=== PATIENT | female | born 1985 | race American Indian/Alaskan Native ===

== ENCOUNTER 2017-02-19 10:12 | Inpatient (IN) | payer MEDICAID ==
[2017-02-19] MEDS ORDERED: BRETHINE IVP PRN (10:23)
[2017-02-19] MEDS ORDERED: BRETHINE SUB-Q PRN (10:23)
[2017-02-19] MEDS ORDERED: MINERAL OIL PO PRN (10:23)
[2017-02-19] MEDS ORDERED: ePHEDrine SULFATE IV PRN ×2 (10:23→13:24)
[2017-02-19] MEDS ORDERED: SUBLIMAZE IV PRN (10:23)
[2017-02-19] MEDS ORDERED: XYLOCAINE 2% INFILTRATI ONE (10:23)
[2017-02-19 10:59] LABS: Hematocrit 34.8 % (30.3-42.9); Hemoglobin 11.4 gm/dl (10.1-14.3); Mean Corpuscular HGB Conc 33 % (30-34); Mean Corpuscular Hemoglobin 30 pg (28-32); Mean Corpuscular Volume 93 fl (79-97); Platelet Count 301 K/mm3 (140-440); Red Blood Count 3.75 M/mm3 (3.65-5.03); Red Cell Distribution Width 13.5 % (13.2-15.2)
[2017-02-19] MEDS ORDERED: PITOCin/NS 30 UNIT/500ML 30 UNITS/500 ML BAG IV SCH (11:00)
[2017-02-19] MEDS ORDERED: PITOCin/NS 20 UNIT/1000ML DRIP 20 UNITS/1,000 ML BAG IV SCH (11:00)
[2017-02-19] MEDS: LACTATED RINGERS 1,000 ML IV SCH ×3 (11:15→13:23)
--- NOTE | 2017-02-19 11:23 | History and Physical Report ---
History of Present Illness Date of examination: 02/19/17 Date of admission: 02/19/17 10:13 Chief complaint: contractions, was sent home from [facility] this am History of present illness: 31 yo , now 38.5 weeks presents to the office this am in labor. Exam in office . care at [facility] since 10 weeks gestation.HX of smoking, quit.GBS Negative Past History Past Surgical History: no surgical history [employer] History: chlamydia, gonorrhea Family/Genetic History: diabetes, hypertension, cancer Social history: smoking - Obstetrical History Expected Date of Delivery: 02/28/17 Actual Gestation: 38 Week(s) 5 Day(s) : 1 Para: 0 Number of Living Children: 0 Medications and Allergies Allergies Allergy/AdvReac Type Severity Reaction Status Date / Time Penicillins Allergy Unknown Verified 09/03/13 15:40 Home Medications Medication Instructions Recorded Confirmed Last Taken Type Clindamycin [Clindamycin CAP] 300 mg PO BID #20 cap 09/03/13 Unknown Rx HYDROcodone/APAP 5-325 [[place] 1 each PO Q6HR PRN #14 tablet 09/03/13 Unknown Rx 5/325] Ibuprofen [Motrin 800 MG tab] 800 mg PO Q8H #30 tablet 09/03/13 Unknown Rx Active Meds: Active Medications Ephedrine Sulfate (Ephedrine Sulfate) 10 mg IV Q2M PRN PRN Reason: Hypotension Fentanyl (Sublimaze) 100 mcg IV Q2H PRN PRN Reason: Labor Pain Last Admin: 02/19/17 11:17 Dose: 100 mcg Lactated Ringer's (Lactated Ringers) 1,000 mls @ 125 mls/hr IV DIRECT SONAL Last Admin: 02/19/17 11:15 Dose: 125 mls/hr Oxytocin/Sodium Chloride (Pitocin/Ns 20 Unit/1000ml Drip) 20 units in 1,000 mls @ 125 mls/hr IV DIRECT SONAL Oxytocin/Sodium Chloride (Pitocin/Ns 30 Unit/500ml) 30 units in 500 mls @ 2 mls /hr IV TITR SONAL PRN Reason: Protocol Mineral Oil (Mineral Oil) 30 ml PO QHS PRN PRN Reason: Constipation Terbutaline Sulfate (Brethine) 0.25 mg SUB-Q ONCE PRN PRN Reason: Hyperstimulation/Hypertonicity Terbutaline Sulfate (Brethine) 0.25 mg IVP ONCE PRN PRN Reason: Hyperstimulation/Hypertonicity Review of Systems All systems: negative - Vital Signs Vital signs: Vital Signs Pulse BP 61 118/73 02/19/17 10:37 02/19/17 10:37 Temp Pulse Resp BP Pulse Ox 61 18 118/73 92 02/19/17 11:24 02/19/17 11:17 02/19/17 10:37 02/19/17 11:24 - Physical Exam Breasts: Positive: deferred Cardiovascular: Regular rate Lungs: Positive: Clear to auscultation Abdomen: Positive: soft Genitourinary (Female): Positive: normal external genitalia Vulva: both: normal Vagina: Positive: normal moisture Uterus: Positive: enlarged Anus/Rectum: Positive: normal perianal skin Deep Tendon Reflex Grade: Normal +2 - Obstetrical FHR: category 1 Uterine Contraction Monitor Mode: External Uterine Contraction Intensity: Moderate Results Result Diagrams: 02/19/17 10:44 Abnormal lab results 02/19/17 Range/Units 10:44 WBC 18.5 H (4.5-11.0) K/mm3 All other labs normal. Assessment and Plan A: active labor at 38.5 weeks P: EXpect Epidural
[2017-02-19] MEDS ORDERED: fentaNYL-BUPIV 2 MCG/ML-0.125% 200 MCG/100 ML BAG EPIDURAL ONE (12:22)
[2017-02-19] MEDS ORDERED: NARCAN 2 MG/2 ML IV PRN (13:24)
--- NOTE | 2017-02-19 13:24 | Anesthesia Consultation ---
Anesthesia Consult and Med Hx Date of service: 02/19/17 - Airway Anesthetic Teeth Evaluation: Good ROM Head & Neck: Adequate Mental/Hyoid Distance: Adequate Mallampati Class: Class II Intubation Access Assessment: Probably Good - Pre-Operative Health Status ASA Pre-Surgery Classification: ASA2 Proposed Anesthetic Plan: Epidural, Spinal - Pulmonary Hx Smoking: Yes Hx Asthma: No COPD: No Hx Pneumonia: No - Cardiovascular System Hx Hypertension: No - Central Nervous System Hx Seizures: No - Endocrine Hx Renal Disease: No Hx End Stage Renal Disease: No Hx Hypothyroidism: No Hx Hyperthyroidism: No - Hematic Hx Sickle Cell Disease: No - Other Systems Hx Alcohol Use: No
[2017-02-19] MEDS ORDERED: fentaNYL-BUPIV 2 MCG/ML-0.125% 200 MCG/100 ML BAG EPIDURAL SCH (14:00)
--- NOTE | 2017-02-19 14:01 | Event Note ---
Date: 02/19/17 O: VE /+1, Arom clear fluid, CAT I tracing, Pit started at 2mu A: Active labor P :expect
[2017-02-19] MEDS ORDERED: TYLENOL PO PRN (15:52)
[2017-02-19] MEDS ORDERED: TUCKS PAD TP PRN (15:52)
[2017-02-19] MEDS ORDERED: BENADRYL PO PRN (15:52)
[2017-02-19] MEDS ORDERED: LANSINOH TP PRN (15:52)
[2017-02-19] MEDS ORDERED: SODIUM CHLORIDE FLUSH SYRINGE 10 ML IV NR (16:00)
--- NOTE | 2017-02-19 16:32 | Procedure Note ---
OB Delivery Note - Delivery Date of Delivery: 02/19/17 Surgeon: PATRICK METZGER - Vaginal Delivery presentation: vertex Delivery position: OA Intrapartum events: meconium Delivery induction: none Delivery augmentation: rupture of membranes, pitocin Delivery monitor: external FHT, external uterine Route of delivery: Delivery placenta: spontaneous Delivery cord: 3 umbilical vessels Episiotomy: none Delivery laceration: 2nd degree (perineal and extension into midline vaginal floor) Delivery repair: vicryl Anesthesia: epidural Delivery comments: of a viable female 5#4oz @ 1458 on 02/19/17 over 2 degree laceration. Apgars 8/9. Placenta delivered 3VCI. ML Laceration and vaginal floor laceration repaired with 2-0 Vicryl. EBL 200 cc. FF @ U -1 lochia small. Mother and baby doing well. - Infant A at 1 minute: 8 at 5 minutes: 9 Gender: Female (5# 4oz)
[2017-02-19] MEDS ORDERED: DERMOPLAST TP PRN (20:23)
[2017-02-19] MEDS: MOTRIN PO SCH (20:25)
[2017-02-19] MEDS: NORCO 5/325 PO PRN (20:26)
[2017-02-20] MEDS: MOTRIN PO SCH ×4 (02:48→22:00)
[2017-02-20] MEDS: NORCO 5/325 PO PRN ×2 (02:49→20:18)
[2017-02-20 05:17] LABS: Hematocrit 28.5 % (30.3-42.9); Hemoglobin 9.6 gm/dl (10.1-14.3)
--- NOTE | 2017-02-20 10:59 | Progress Note ---
Assessment and Plan A: PP Day #1 Asymptomatic Anemia P: Follow Routine PP Orders FeSO4 325mg PO TID; Continue at home D/C home in the AM RTO in 6 Weeks Subjective - Subjective Date of service: 02/20/17 Patient reports: appetite normal, voiding normally, pain well controlled, flatus , ambulating normally : doing well, bottle feeding (and ) Objective - Vital Signs Latest vital signs: Vital Signs Temp Pulse Resp BP BP Pulse Ox 02/20/17 07:41 98.1 F 68 18 118/79 100 02/20/17 00:00 98.0 F 59 L 18 106/51 02/19/17 20:05 98.2 F 69 18 132/57 02/19/17 17:55 99.7 F H 80 20 121/86 02/19/17 17:04 71 116/56 02/19/17 16:49 79 140/63 02/19/17 16:34 61 121/66 02/19/17 16:19 65 121/64 02/19/17 16:04 62 113/63 02/19/17 15:49 68 117/71 100 02/19/17 15:44 58 L 100 02/19/17 15:34 59 L 113/63 02/19/17 15:19 60 118/60 02/19/17 14:36 62 98 02/19/17 14:35 72 79 L 02/19/17 14:31 57 L 109/61 02/19/17 14:30 56 L 100 02/19/17 14:25 59 L 99 02/19/17 14:20 60 100 02/19/17 14:15 61 96 02/19/17 13:59 56 L 117/69 02/19/17 13:58 56 L 99 02/19/17 13:53 56 L 100 02/19/17 13:52 56 L 109/65 76 L 02/19/17 13:26 56 L 107/65 02/19/17 13:24 54 L 110/65 02/19/17 13:22 57 L 110/63 02/19/17 13:20 55 L 110/65 02/19/17 13:18 54 L 108/65 02/19/17 13:16 53 L 108/59 02/19/17 13:14 58 L 112/65 02/19/17 13:12 54 L 110/61 02/19/17 13:06 56 L 96 02/19/17 13:01 54 L 96 02/19/17 12:56 57 L 96 02/19/17 12:51 55 L 98 02/19/17 12:46 58 L 100 02/19/17 12:45 56 L 126/66 02/19/17 12:44 54 L 87 02/19/17 12:41 58 L 100 02/19/17 12:36 55 L 115/63 100 02/19/17 12:34 58 L 117/65 02/19/17 12:32 57 L 118/67 02/19/17 12:31 61 99 02/19/17 12:30 55 L 112/64 02/19/17 12:28 56 L 120/63 02/19/17 12:26 60 100 02/19/17 12:25 84 90 02/19/17 12:22 59 L 99/56 02/19/17 12:21 69 99 02/19/17 12:20 58 L 108/55 02/19/17 12:18 66 114/64 02/19/17 12:16 56 L 115/62 100 02/19/17 12:14 57 L 117/62 02/19/17 12:12 59 L 124/65 02/19/17 12:11 60 100 02/19/17 12:10 56 L 123/60 02/19/17 12:09 60 128/61 02/19/17 12:06 64 100 02/19/17 12:04 82 145/74 02/19/17 12:01 74 140/68 99 02/19/17 11:56 67 100 02/19/17 11:24 61 92 02/19/17 11:23 63 89 02/19/17 11:17 18 Intake and Output 02/19/17 02/20/17 02/20/17 22:59 06:59 14:59 Intake Total 240 120 Output Total 400 1600 Balance -400 -1360 120 Intake: Oral 240 Intake, Free Water 120 Output: Urine 400 1600 Void 400 1600 Other: Total, Intake Amount 240 Total, Output Amount 400 600 # Voids Void 1 3 1 Estimated Blood Loss 200 - Exam Breasts: Present: normal Cardiovascular: Present: Regular rate Lungs: Present: Clear to auscultation, Normal air movement Abdomen: Present: normal appearance, soft, normal bowel sounds Uterus: Present: normal, firm, fundal height below umbilicus Extremities: Present: normal - Labs Labs: Abnormal lab results 02/19/17 02/20/17 Range/Units 10:44 04:30 WBC 18.5 H (4.5-11.0) K/mm3 Hgb 9.6 L (10.1-14.3) gm/dl Hct 28.5 L D (30.3-42.9) %
--- NOTE | 2017-02-20 11:00 | Discharge Summary ---
Providers - Providers Date of Admission: 02/19/17 10:13 Date of discharge: 02/21/17 Attending physician: BONNY HULL MD Primary care physician: BONNY HULL MD Hospitalization Reason for admission: active labor Delivery: Episiotomy: none Laceration: 2nd degree Other procedures: none complications: none Discharge diagnosis: IUP at term delivered [place] baby: female Condition at discharge: Good Disposition: DC-01 TO HOME OR SELFCARE Plan - Provider Discharge Summary Activity: routine, no sex for 6 weeks, no heavy lifting 4 weeks, no strenuous exercise Diet: routine Instructions: routine Additional instructions: [] Smoking cessation referral if applicable(refer to patient education folder for contact #) [] Refer to [facility] Booklet Call your doctor immediately for: * Fever > 100.5 * Heavy vaginal bleeding ( >1 pad per hour) * Severe persistent headache * Shortness of breath * Reddened, hot, painful area to leg or breast * Drainage or odor from incision. * Keep incision clean and dry at all times and follow doctor's instructions regarding bathing/showering - Follow up plan Follow up: BONNY HULL MD [Primary Care Provider] - 6 Weeks
[2017-02-20] MEDS: FEOSOL PO SCH ×2 (16:00→20:17)
[2017-02-21] MEDS: MOTRIN PO SCH ×3 (04:20→16:56)
[2017-02-21] MEDS: NORCO 5/325 PO PRN ×3 (04:20→21:44)
[2017-02-21] MEDS: FEOSOL PO SCH ×2 (10:15→16:56)
--- NOTE | 2017-02-21 10:53 | Vascular Lab Report ---
Right Lower Extremity Venous Duplex Study: Reason for Exam: Pain of the right lower extremity. Comments on the Right: All veins visualized are freely compressible without evidence of internal echogenicity. Flow is spontaneous and phasic throughout. No evidence of acute or chronic thrombus is seen in any of the vessels visualized. Comments on the Left: A limited duplex study was done of the proximal veins of the left lower extremity. All veins visualized are freely compressible without evidence of internal echogenicity. Flow is spontaneous and phasic throughout. No evidence of acute or chronic thrombus is seen in any of the vessels visualized. Impression: No evidence of acute or chronic deep venous thrombosis in the right lower extremity.
[2017-02-21 19:11] VITALS: BP 118/60
== END 2017-02-21 22:25 | disposition home or self-care (01) | DRG 775 ==
LOC: TRG 10:12 → LD 10:13 → OB 17:52
PROVIDERS: ADMIT Obstetrics & Gynecology; ATTEND Obstetrics & Gynecology
PROC: 10E0XZZ Delivery of Products of Conception, External Approach (ICD-10-PCS; principal; 2017-02-19)
PROC: 0KQM0ZZ Repair Perineum Muscle, Open Approach (ICD-10-PCS; 2017-02-19)
PROC: 3E0R3BZ Introduction of Anesthetic Agent into Spinal Canal, Percutaneous Approach (ICD-10-PCS; 2017-02-19)
PROC: 00HU33Z Insertion of Infusion Device into Spinal Canal, Percutaneous Approach (ICD-10-PCS; 2017-02-19)
DX: O77.0 Labor and delivery complicated by meconium in amniotic fluid (principal); Z3A.38 38 weeks gestation of pregnancy; Z37.0 Single live birth; Z88.0 Allergy status to penicillin; O70.1 Second degree perineal laceration during delivery; O90.81 Anemia of the puerperium; D64.9 Anemia, unspecified; F17.200 Nicotine dependence, unspecified, uncomplicated; O99.334 Smoking (tobacco) complicating childbirth
CPT/HCPCS: 36415; 85014; 85018; 85027; 86850; 86900; 86901; 99211; G0463; J2590; J3010; J7120